=== PATIENT | male | born 1995 | race African-American/Black ===

== ENCOUNTER 2016-04-25 23:07 | Emergency (ER) | payer OTHER ==
[~2016-04-25] VITALS: Ht 165.1 cm; Wt 70.0 kg
[~2016-04-25 23:07] MED LIST: IBUP800T23 PO; METH750T2 PO
[2016-04-25 23:19] VITALS: BP 130/70; PULSE 82; RESP 24; TEMP 98.6
[2016-04-25] MEDS ORDERED: ONDANSETRON HCL 4 MG/2 ML VIAL ONE (23:27)
[2016-04-25 23:31] VITALS: TEMP 100.1
[2016-04-25] MEDS ORDERED: SODIUM CHLOR 0.9% 1000 ML INJ 1,000 ML IV SCH (23:31)
--- NOTE | 2016-04-25 23:36 | PD ---
HPI . Abdominal pain Chief Complaint: Abdominal Pain Time Seen by Provider: 23:31 Travel History International Travel<30 days: No Contact w/Intl Traveler<30days: No Traveled to known affect area: No History of Present Illness HPI Patient presents complaining with abdominal pain associated with vomiting and diarrhea. He states that he's been sick for about 3 or 4 days. He states that it became acutely worse today. He reports 9 episodes of emesis. He reports an associated fever. He also reports hesitancy and dysuria. He states that he has frequent urinary tract infections. He states that his most recent one was in December. [id number]: Generalized abdominal QUALITY: Cramping DURATION: 3 days TIMING: Acutely worse today ASSOCIATED SYMPTOMS: Nausea, vomiting, diarrhea and urinary symptoms PFSH Past Medical History Medical History: Denies Significant Hx Diminished Hearing: No Tetanus Vaccination: > 5 Years Influenza Vaccination: No Social History Alcohol Use: Yes (Daily 2 pts. per day) Tobacco Use: No Substance Use: No Allergies-Medications (Allergen,Severity, Reaction): Coded Allergies: Seafood (Verified Allergy, Intermediate, 04/25/16) Reported Meds & Prescriptions Reported Meds & Active Scripts Active Phenergan (Promethazine HCl) 25 Mg Tab 25 Mg PO Q6H PRN Review of Systems Except as stated in HPI: all other systems reviewed are Neg General / Constitutional: Positive: Fever, Chills Gastrointestinal: Positive: Nausea, Vomiting, Diarrhea, Abdominal Pain Genitourinary: Positive: Frequency, Hesitancy Physical Exam Narrative GENERAL: This is a healthy-appearing young man in no acute distress. SKIN: Warm and dry. Good skin turgor. HEAD: Atraumatic. Normocephalic. EYES: Pupils equal and round. Extraocular movements are intact. ENT: No nasal bleeding or discharge. Mucous membranes pink and moist. NECK: Trachea midline. Neck is supple. CARDIOVASCULAR: Regular rate and rhythm. Heart sounds are normal. RESPIRATORY: No accessory muscle use. Lungs are clear with full air movement throughout. GASTROINTESTINAL: Abdomen soft, non-tender, nondistended. Normal bowel sounds. MUSCULOSKELETAL: No obvious deformities. No edema. NEUROLOGICAL: Awake and alert. No obvious cranial nerve deficits. Motor grossly within normal limits. Normal speech. PSYCHIATRIC: Appropriate mood and affect; insight and judgment normal. Data Data Last Documented VS Vital Signs Date Time Temp Pulse Resp B/P Pulse Ox O2 Delivery O2 Flow Rate FiO2 04/25/16 23:31 100.1 04/25/16 23:23 20 04/25/16 23:19 82 130/70 Orders Ondansetron Inj (Zofran Inj) (04/25/16 23:27) Basic Metabolic Panel (Bmp) (04/25/16 23:31) Complete Blood Count With Diff (04/25/16 23:31) Urinalysis - C+S If Indicated (04/25/16 23:31) Iv Access Insert/Monitor (04/25/16 23:31) Morphine Inj (Morphine Inj) (04/25/16 23:45) Ondansetron Inj (Zofran Inj) (04/25/16 23:45) Sodium Chlor 0.9% 1000 Ml Inj (Ns 1000 M (04/25/16 23:31) Sodium Chloride 0.9% Flush (Ns Flush) (04/25/16 23:45) Labs Laboratory Tests Test 04/25/16 04/26/16 23:40 01:30 White Blood Count 15.1 TH/MM3 Red Blood Count 5.37 MIL/MM3 Hemoglobin 15.9 GM/DL Hematocrit 47.0 % Mean Corpuscular Volume 87.5 FL Mean Corpuscular Hemoglobin 29.6 PG Mean Corpuscular Hemoglobin 33.9 % Concent Red Cell Distribution Width 14.2 % Platelet Count 224 TH/MM3 Mean Platelet Volume 8.5 FL Neutrophils (%) (Auto) 92.1 % Lymphocytes (%) (Auto) 2.4 % Monocytes (%) (Auto) 5.2 % Eosinophils (%) (Auto) 0.0 % Basophils (%) (Auto) 0.3 % Neutrophils # (Auto) 13.9 TH/MM3 Lymphocytes # (Auto) 0.4 TH/MM3 Monocytes # (Auto) 0.8 TH/MM3 Eosinophils # (Auto) 0.0 TH/MM3 Basophils # (Auto) 0.0 TH/MM3 CBC Comment DIFF FINAL Differential Comment Sodium Level 142 MEQ/L Potassium Level 4.2 MEQ/L Chloride Level 104 MEQ/L Carbon Dioxide Level 29.6 MEQ/L Anion Gap 8 MEQ/L Blood Urea Nitrogen 12 MG/DL Creatinine 1.22 MG/DL Estimat Glomerular Filtration 90 ML/MIN Rate Random Glucose 97 MG/DL Calcium Level 9.2 MG/DL Urine Color YELLOW Urine Turbidity CLEAR Urine pH 6.0 Urine Specific [place] 1.015 Urine Protein NEG mg/dL Urine Glucose (UA) NEG mg/dL Urine Ketones NEG mg/dL Urine Occult Blood NEG Urine Nitrite NEG Urine Bilirubin NEG Urine Urobilinogen LESS THAN 2.0 MG/DL Urine Leukocyte Esterase NEG Urine RBC LESS THAN 1 /hpf Urine WBC 1 /hpf Urine Mucus FEW /lpf Microscopic Urinalysis Comment CULT NOT INDICATED MDM Medical Decision Making Medical Screen Exam Complete: Yes Emergency Medical Condition: Yes Differential Diagnosis Differential diagnosis of abdominal pain includes but is not limited to gastritis, pancreatitis, hepatitis, gastroenteritis, gallbladder disease, constipation, urinary retention, UTI, peptic ulcer disease, diverticulitis or appendicitis Narrative Course Patient presents complaining of abdominal pain associated with nausea, vomiting and diarrhea. He also has some urinary symptoms. He'll be treated with IV fluids, IV morphine and IV Zofran. Routine blood work and urinalysis will be obtained. CBC & BMP Diagram 04/25/16 23:40 He is now requesting oral fluids. He has not yet produced a urine. Regardless of the results of his urine, he is now medically clear. UA is negative for infection. Diagnosis Primary Impression: Abdominal pain Qualified Code: R10.84 - Generalized abdominal pain Additional Impressions: Nausea and vomiting Qualified Code: R11.2 - Non-intractable vomiting with nausea, unspecified vomiting type Diarrhea Qualified Code: R19.7 - Diarrhea, unspecified type Patient Instructions: Gastroenteritis (DC), General Instructions Med/Other Pt SpecificInfo: Prescription(s) given Scripts Promethazine (Phenergan)25 Mg Tab25 Mg PO Q6H PRN (Nausea/Vomiting) #10 TAB Ref 0 Prov:Felicia Cole MD 04/26/16 Disposition: DISCHARGE HOME Condition: Stable Felicia Cole MD Apr 25, 2016 23:36
[2016-04-25] MEDS ORDERED: ONDANSETRON HCL 4 MG/2 ML VIAL IVP ONE (23:45)
[2016-04-25] MEDS ORDERED: MORPHINE SULFATE 4 MG/ML INJ IV PUSH ONE (23:45)
[2016-04-25] MEDS ORDERED: SODIUM CHLORIDE 0.9% FLUSH 5 ML FLUSH IVF PRN (23:45)
[2016-04-26 00:05] LABS: AUTOMATED NEUTROPHIL # 13.9 TH/MM3 (1.8-7.7); BASOPHIL % 0.3 % (0.0-2.0); HEMO FLAGS DIFF FINAL; LYMPH % 2.4 % (9.0-44.0); LYMPHOCYTE # 0.4 TH/MM3 (1.0-4.8); MEAN CELL VOLUME 87.5 FL (80.0-100.0); MEAN CORPUSCULAR HEMOGLOBIN 29.6 PG (27.0-34.0); MEAN CORPUSCULAR HGB CONC 33.9 % (32.0-36.0); MONO % 5.2 % (0.0-8.0); NEUT % 92.1 % (16.0-70.0); PLATELET COUNT 224 TH/MM3 (150-450); RED BLOOD COUNT 5.37 MIL/MM3 (4.50-5.90); RED CELL DISTRIBUTION WIDTH 14.2 % (11.6-17.2); WHITE BLOOD COUNT 15.1 TH/MM3 (4.0-11.0)
[2016-04-26 00:24] LABS: BICARBONATE 29.6 MEQ/L (21.0-32.0); POTASSIUM 4.2 MEQ/L (3.5-5.1)
[2016-04-26] MEDS ORDERED: PROM25TA5 PO (01:46)
[2016-04-26 01:51] LABS: BLOOD, URINE NEG (NEG); COMMENT (UR) CULT NOT INDICATED; CULTURE IF INDICATED CULT NOT INDICATED; GLUCOSE,URINE NEG (NEG); KETONE, URINE NEG (NEG); MUCUS URINE FEW /lpf (OCC); NITRITE,URINE NEG (NEG); URINE COLOR YELLOW (YELLW/STRAW)
[2016-04-26 02:19] VITALS: RESP 20
[2016-04-26 02:37] VITALS: BP 122/65
== END 2016-04-26 02:53 | disposition home or self-care (01) ==
LOC: NEPC 23:07
DX: R19.7 Diarrhea, unspecified (principal); R10.9 Unspecified abdominal pain; R11.2 Nausea with vomiting, unspecified; F10.20 Alcohol dependence, uncomplicated
CPT/HCPCS: 80048; 81001; 85025; 96361; 96374; 96375; 99284; J2270; J2405; J7030

== ENCOUNTER 2016-07-21 11:50 | Emergency (ER) | payer SELFPAY ==
[~2016-07-21 11:50] MED LIST changes: -IBUP800T23 PO; -METH750T2 PO; +PROM25TA5 PO
[2016-07-21 11:51] VITALS: BP 143/99; PULSE 64; RESP 16; TEMP 97.9; O2SAT 99
[2016-07-21] MEDS ORDERED: LIDOCAINE HCL 1% 50 ML VIAL IM ONE (12:15)
[2016-07-21] MEDS ORDERED: AZITHROMYCIN 250 MG TAB PO ONE (12:15)
[2016-07-21] MEDS ORDERED: cefTRIAXone 250 MG VIAL IM ONE (12:15)
--- NOTE | 2016-07-21 12:19 | PD ---
HPI Chief Complaint: Complaint Time Seen by Provider: 12:17 Travel History International Travel<30 days: No Contact w/Intl Traveler<30days: No Traveled to known affect area: No History of Present Illness HPI 21-year-old male presents to emergency Department with complaint of dysuria and penile drainage for 2 weeks. Reports being exposed to chlamydia month ago. Denies abdominal pain, nausea, vomiting, fever. Denies testicular pain or penile pain. Denies testicular swelling. Has not taken any medications or tried any treatments to relieve the symptoms. Allergies to seafood. Has no other medical complaints. No other modifying factors or associated signs and symptoms. PFSH Past Medical History Medical History: Denies Significant Hx Diminished Hearing: No Tetanus Vaccination: > 5 Years Influenza Vaccination: No Past Surgical History Surgical History: No Previous Surgery Social History Alcohol Use: Yes (OCASSIONALLY) Tobacco Use: Yes Substance Use: Yes (WEED) Allergies-Medications (Allergen,Severity, Reaction): Coded Allergies: Seafood (Verified Allergy, Intermediate, swelling, 07/21/16) Reported Meds & Prescriptions Reported Meds & Active Scripts Active No Active Prescriptions or Reported Medications Review of Systems Except as stated in HPI: all other systems reviewed are Neg Physical Exam Narrative GENERAL: Well-nourished, well-developed male patient, in no acute distress; afebrile, nontoxic-appearing SKIN: Warm and dry. HEAD: Atraumatic. Normocephalic. EYES: Pupils equal and round. ENT: Mucosa pink and moist. NECK: Trachea midline. No lymphadenopathy. CARDIOVASCULAR: Regular rate. RESPIRATORY: No accessory muscle use. Clear to auscultation. Breath sounds equal bilaterally. GASTROINTESTINAL: Flat. GENITOURINARY: Exam done in the presence of a nurse. Circumcised. Testes descended bilaterally without evidence of rotation. No lesions or erythema. Milky urethral discharge. MUSCULOSKELETAL: No obvious deformities. No clubbing. No cyanosis. No edema. NEUROLOGICAL: Awake and alert. Oriented 3. No obvious cranial nerve deficits. Motor grossly within normal limits. Normal speech. Moves all extremities. 5/5 strength to all extremities. PSYCHIATRIC: Appropriate mood and affect; insight and judgment normal. Data Data Last Documented VS Vital Signs Date Time Temp Pulse Resp B/P Pulse Ox O2 Delivery O2 Flow Rate FiO2 07/21/16 12:30 97.8 76 16 110/77 99 07/21/16 11:51 Room Air Orders Gc And Chlamydia Pcr (07/21/16 12:11) Ceftriaxone Inj (Rocephin Inj) (07/21/16 12:15) Lidocaine 1% Inj (50 Ml) (Xylocaine 1% I (07/21/16 12:15) Azithromycin (Zithromax) (07/21/16 12:15) MDM Medical Decision Making Medical Screen Exam Complete: Yes Emergency Medical Condition: Yes Medical Record Reviewed: Yes Differential Diagnosis Chlamydia, gonorrhea, urethritis, STI Narrative Course 21-year-old male with urethritis and exposure to chlamydia. Chlamydia and gonorrhea pending. Patient empirically treated with Rocephin and azithromycin. Instructed patient to follow up at [facility] or health department for further STD/STI testing. Patient verbalizes understanding and agreement with treatment plan. Patient is medically cleared and stable for discharge. Discussed reasons to return to the emergency department. Instructed patient to follow up with primary care provider. Patient agrees with treatment plan. The patients vital signs are stable and the patient is stable for outpatient follow- up and treatment. Patient discharged home, stable and in no acute distress. Diagnosis Primary Impression: Urethritis Additional Impression: Exposure to chlamydia Referrals: [facility] Primary Care Physician Patient Instructions: Chlamydia (ED), General Instructions, Gonorrhea (ED), Sexually Transmitted Diseases (ED) Departure Forms: Tests/Procedures, Work Release Enter return to work date: Jul 21, 2016 Additional Instructions: Avoid sexual activity until you follow up with her primary care provider Inform all sexual partners within the past 3-6 months that they need to be evaluated and treated Use condoms every time you have sex Follow-up with primary care provider Follow-up with the health department for further STD testing Return to the emergency department immediately with worsening of symptoms Med/Other Pt SpecificInfo: No Meds Exist/No RX given Scripts No Active Prescriptions or Reported Meds Disposition: 01 DISCHARGE HOME Condition: Stable Nohelia Luna Jul 21, 2016 12:19
[2016-07-21 12:30] VITALS: BP 110/77; TEMP 97.8
[2016-07-21 15:43] LABS: CHLAMYDIA PCR NOT DETECTED (NOT DETECT); NEISSERIA PCR DETECTED (NOT DETECT)
== END 2016-07-21 12:30 | disposition home or self-care (01) ==
LOC: NEPK 11:50
DX: N34.2 Other urethritis (principal); Z20.2 Contact with and (suspected) exposure to infections with a predominantly sexual mode of transmission; Z72.0 Tobacco use
CPT/HCPCS: 87491; 87591; 96372; 99284; J0696

== ENCOUNTER 2017-04-14 19:31 | Emergency (ER) | payer SELFPAY ==
[~2017-04-14] VITALS: Ht 165.1 cm; Wt 60.0 kg
[2017-04-14 19:39] VITALS: BP 134/86; PULSE 88; RESP 16; TEMP 98.8; O2SAT 100
[2017-04-14] MEDS ORDERED: SODIUM CHLOR 0.9% 1000 ML INJ 1,000 ML IV SCH (20:03)
[2017-04-14] MEDS ORDERED: ONDANSETRON HCL 4 MG/2 ML VIAL IVP ONE (20:15)
--- NOTE | 2017-04-14 20:29 | PD ---
HPI Chief Complaint: GI Complaint Time Seen by Provider: 19:47 Travel History International Travel<30 days: No Contact w/Intl Traveler<30days: No Traveled to known affect area: No History of Present Illness HPI 22-year-old male presents emergency department complaining upper abdominal pain , nausea, vomiting, diarrhea that started this morning. Patient states that he woke up with this symptoms is concerned that he has a "stomach virus". Patient states that he ate undercooked hamburger yesterday and is concerned this may be the cause. States that nobody else is sick who ate a hamburger. Denies urinary discomfort. Denies fevers, chills. Denies chronic medical issues or medication use. Patient denies alcohol use, illicit drug use, IV drug use. PFSH Past Medical History Medical History: Denies Significant Hx Diminished Hearing: No Immunizations Current: Yes Social History Alcohol Use: Yes (OCASSIONALLY) Tobacco Use: Yes Substance Use: Yes (WEED) Allergies-Medications (Allergen,Severity, Reaction): Coded Allergies: Fish Containing Products (Unverified Allergy, Intermediate, swelling, ) Reported Meds & Prescriptions Reported Meds & Active Scripts Active Zofran (Ondansetron HCl) 4 Mg Tab 4 Mg PO Q8HR PRN 3 Days Review of Systems Except as stated in HPI: all other systems reviewed are Neg Physical Exam Narrative GENERAL: Well-developed, well-nourished in no apparent distress, soft-spoken SKIN: Focused skin assessment warm/dry. HEAD: Atraumatic. Normocephalic. EYES: Pupils equal and round. No scleral icterus. No injection or drainage. ENT: No nasal bleeding or discharge. Mucous membranes pink and moist. NECK: Trachea midline. No JVD. No lymphadenopathy CARDIOVASCULAR: Regular rate and rhythm. No murmur appreciated. RESPIRATORY: No accessory muscle use. Clear to auscultation. Breath sounds equal bilaterally. GASTROINTESTINAL: Abdomen diffusely tender to palpation, normoactive bowel sounds, no rebound tenderness. MUSCULOSKELETAL: No obvious deformities. No clubbing. No cyanosis. No edema. NEUROLOGICAL: Awake and alert. No obvious cranial nerve deficits. Motor grossly within normal limits. Normal speech. Data Data Last Documented VS Vital Signs Date Time Temp Pulse Resp B/P (MAP) Pulse Ox O2 Delivery O2 Flow Rate FiO2 04/14/17 22:29 04/14/17 22:28 100 Room Air 04/14/17 19:39 98.8 88 16 Orders Orders Complete Blood Count With Diff (04/14/17 20:03) Comprehensive Metabolic Panel (04/14/17 20:03) Lipase (04/14/17 20:03) Prothrombin Time / Inr (Pt) (04/14/17 20:03) Act Partial Throm Time (Ptt) (04/14/17 20:03) Urinalysis - C+S If Indicated (04/14/17 20:03) Iv Access Insert/Monitor (04/14/17 20:03) Ecg Monitoring (04/14/17 20:03) Oximetry (04/14/17 20:03) Ondansetron Inj (Zofran Inj) (04/14/17 20:15) Sodium Chlor 0.9% 1000 Ml Inj (Ns 1000 M (04/14/17 20:03) Electrocardiogram (04/14/17 20:03) Ed Discharge Order (04/14/17 22:10) Labs Laboratory Tests Test 04/14/17 20:20 04/14/17 21:25 White Blood Count 14.0 TH/MM3 Red Blood Count 5.05 MIL/MM3 Hemoglobin 15.3 GM/DL Hematocrit 44.7 % Mean Corpuscular Volume 88.5 FL Mean Corpuscular Hemoglobin 30.2 PG Mean Corpuscular Hemoglobin Concent 34.2 % Red Cell Distribution Width 14.2 % Platelet Count 245 TH/MM3 Mean Platelet Volume 8.2 FL Neutrophils (%) (Auto) 90.6 % Lymphocytes (%) (Auto) 2.4 % Monocytes (%) (Auto) 6.7 % Eosinophils (%) (Auto) 0.0 % Basophils (%) (Auto) 0.3 % Neutrophils # (Auto) 12.6 TH/MM3 Lymphocytes # (Auto) 0.3 TH/MM3 Monocytes # (Auto) 0.9 TH/MM3 Eosinophils # (Auto) 0.0 TH/MM3 Basophils # (Auto) 0.0 TH/MM3 CBC Comment DIFF FINAL Differential Comment Prothrombin Time 10.7 SEC Prothromb Time International Ratio 1.1 RATIO Activated Partial Thromboplast Time 22.6 SEC Blood Urea Nitrogen 15 MG/DL Creatinine 1.17 MG/DL Random Glucose 99 MG/DL Total Protein 8.3 GM/DL Albumin 4.8 GM/DL Calcium Level 9.4 MG/DL Alkaline Phosphatase 100 U/L Aspartate Amino Transf (AST/SGOT) 17 U/L Alanine Aminotransferase (ALT/SGPT) 17 U/L Total Bilirubin 0.9 MG/DL Sodium Level 140 MEQ/L Potassium Level 4.1 MEQ/L Chloride Level 104 MEQ/L Carbon Dioxide Level 25.6 MEQ/L Anion Gap 10 MEQ/L Estimat Glomerular Filtration Rate 94 ML/MIN Lipase 95 U/L Urine Color YELLOW Urine Turbidity CLEAR Urine pH 7.5 Urine Specific [place] 1.020 Urine Protein NEG mg/dL Urine Glucose (UA) NEG mg/dL Urine Ketones 40 mg/dL Urine Occult Blood NEG Urine Nitrite NEG Urine Bilirubin NEG Urine Urobilinogen LESS THAN 2.0 MG/DL Urine Leukocyte Esterase NEG Urine WBC 3 /hpf Urine Bacteria RARE /hpf Urine Mucus FEW /lpf Microscopic Urinalysis Comment CULT NOT INDICATED MDM Medical Decision Making Medical Screen Exam Complete: Yes Emergency Medical Condition: Yes Differential Diagnosis Gastroenteritis, nausea and vomiting, viral syndrome Narrative Course 22-year-old male presents emergency department complaining of nausea, vomiting, abdominal pain that started this morning. States that he is unable to keep anything down. Thinks he has a stomach virus. Says he ate an undercooked hamburger and thinks this may be contributing as well. Vital signs stable. Physicla exam findings demonstrate a well developed, well nourished male in NAD. Abdomen diffusely tender with voluntary guarding. No rebound tenderness. CBC & BMP Diagram 04/14/17 20:20 Total Protein 8.3 H, Albumin 4.8, Calcium Level 9.4, Alkaline Phosphatase 100, Aspartate Amino Transf (AST/SGOT) 17, Alanine Aminotransferase (ALT/SGPT) 17, Total Bilirubin 0.9 Elevation of white blood cell count likely secondary to vomiting. Zofran and 1LNS IVF administered. Pt remained stable in the ED today. Asks for fruit and an orange gatorade. He tolerated fluids well and will be discharged home with zofran. Advised to continue drinking water and ensuring good hydration. Patient states understanding will comply. He ambulated out of the ED without issue. No vomiting or diarrhea in the ED today. Diagnosis Primary Impression: Gastroenteritis Referrals: Primary Care Physician Additional Instructions: Take all medication as prescribed. Ensure adequate fluid intake and proper nutrition. Follow-up with a primary care physician this week. If your symptoms persist or worsen return to the emergency department. Scripts Ondansetron (Zofran) 4 Mg Tab 4 MG PO Q8HR Y for NAUSEA OR VOMITING for 3 Days, TAB 0 Refills Prov: Fern Jefferson 04/14/17 Disposition: 01 DISCHARGE HOME Condition: Stable Fern Jefferson Apr 14, 2017 20:29
[2017-04-14 21:05] LABS: AUTOMATED NEUTROPHIL # 12.6 TH/MM3 (1.8-7.7); BASOPHIL % 0.3 % (0.0-2.0); HEMATOCRIT 44.7 % (39.0-51.0); HEMOGLOBIN 15.3 GM/DL (13.0-17.0); LYMPH % 2.4 % (9.0-44.0); LYMPHOCYTE # 0.3 TH/MM3 (1.0-4.8); MEAN CELL VOLUME 88.5 FL (80.0-100.0); MEAN CORPUSCULAR HEMOGLOBIN 30.2 PG (27.0-34.0); MEAN CORPUSCULAR HGB CONC 34.2 % (32.0-36.0); MEAN PLATELET VOLUME 8.2 FL (7.0-11.0); MONO % 6.7 % (0.0-8.0); MONOCYTE # 0.9 TH/MM3 (0-0.9); NEUT % 90.6 % (16.0-70.0); PLATELET COUNT 245 TH/MM3 (150-450); RED BLOOD COUNT 5.05 MIL/MM3 (4.50-5.90); RED CELL DISTRIBUTION WIDTH 14.2 % (11.6-17.2)
[2017-04-14 21:15] LABS: INTERNATIONAL NORMALIZED RATIO 1.1 RATIO; PROTHROMBIN TIME - PATIENT 10.7 SEC (9.8-11.6)
[2017-04-14 21:26] LABS: ALBUMIN 4.8 GM/DL (3.4-5.0); AST (GOT) 17 U/L (15-37); BICARBONATE 25.6 MEQ/L (21.0-32.0); BLOOD UREA NITROGEN 15 MG/DL (7-18); CALCIUM 9.4 MG/DL (8.5-10.1); CHLORIDE 104 MEQ/L (98-107); CREATININE 1.17 MG/DL (0.60-1.30); GLOMERULAR FILTRATION RATE 94 ML/MIN (>89); GLUCOSE,RANDOM 99 MG/DL (74-106); SODIUM (NA) 140 MEQ/L (136-145)
[2017-04-14 21:27] LABS: ALT (GPT) 17 U/L (12-78)
[2017-04-14 21:29] LABS: ALKALINE PHOSPHATASE 100 U/L (45-117); TOTAL BILIRUBIN ADULT 0.9 MG/DL (0.2-1.0); TOTAL PROTEIN 8.3 GM/DL (6.4-8.2)
[2017-04-14 21:59] LABS: BACTERIA, URINE RARE /hpf; BILIRUBIN, URINE NEG (NEG); BLOOD, URINE NEG (NEG); GLUCOSE,URINE NEG (NEG); KETONE, URINE 40 mg/dL (NEG); MUCUS URINE FEW /lpf (OCC); NITRITE,URINE NEG (NEG); PH, URINE 7.5 (5.0-8.5); URINE COLOR YELLOW (YELLW/STRAW); URINE LEUKOCYTE ESTERASE NEG (NEG)
[2017-04-14] MEDS ORDERED: ZOFR4TAB PO (22:09)
[2017-04-14 22:28] VITALS: O2SAT 100
--- NOTE | 2017-04-18 13:15 | EKG ---
Date Performed: 04/14/2017 Time Performed: 20:21:01 PTAGE: 22 years EKG: Sinus rhythm WITH SINUS ARRHYTHMIA LEFT VENTRICULAR HYPERTROPHY AND ST-T CHANGE ABNORMAL ECG NO PREVIOUS TRACING DOCTOR: Han Doss Interpretating Date/Time 04/18/2017 13:14:07
== END 2017-04-14 22:31 | disposition home or self-care (01) ==
LOC: NEPC 19:31
DX: K52.9 Noninfective gastroenteritis and colitis, unspecified (principal); R94.31 Abnormal electrocardiogram [ECG] [EKG]; Z72.0 Tobacco use
CPT/HCPCS: 80053; 81001; 83690; 85025; 85610; 85730; 93005; 96361; 96374; 99284; J2405; J7030